=== PATIENT | male | born 1975 | race Asian ===

== ENCOUNTER 2019-05-02 00:58 | Emergency (ER) | payer BC ==
[~2019-05-02] VITALS: Ht 172.7 cm; Wt 72.6 kg
--- NOTE | 2019-05-02 01:51 | NUR ---
PATIENT IN BED 3. VSS. PATIENT BREATHING EVEN AND UNLABORED. PATIENT CAME TO ER FROM HOME D/T INCREASING ABD PAIN TO HIS BILAT UPPER ABD AND REPORT PAIN SOMETIMES RADIATES TO BACK. STATES IT GETS WORSE WHEN LAYING FLAT. BEEN HAVING PAIN FOR LAST 2 DAYS BUT STATES IT GOT WORSE TONIGHT AND HAS BEEN UNABLE TO SLEEP. RATES PAIN 8/10. AWAITING EVALUATION BY ER PROVIDER.
--- NOTE | 2019-05-02 01:55 | NUR ---
DR. IZAGUIRRE IN TO SEE THE PATIENT.
[2019-05-02] MEDS ORDERED: KETOROLAC TROMETHAMINE INJ 30 MG/ML VIAL IV ONE (02:00)
[2019-05-02 02:17] LABS: EOSINOPHILS % (AUTO) 2.7 % (0.0-6.0); HEMATOCRIT 44 % (39-51); HEMOGLOBIN 14.8 g/dL (13.5-17.5); LYMPHOCYTES # (AUTO) 0.7 /CMM (0.8-4.8); LYMPHOCYTES % (AUTO) 7.6 % (20.0-44.0); MEAN CORPUSCULAR HGB CONC 34 g/dl (31.0-36.0); MEAN CORPUSCULAR VOLUME 88 fL (80-96); MONOCYTES # (AUTO) 0.3 /CMM (0.1-1.30); MONOCYTES % (AUTO) 2.8 % (2.0-12.0); NEUTROPHILS # (AUTO) 7.8 /CMM (1.8-8.9); NEUTROPHILS % (AUTO) 86.9 % (43.0-81.0); PLATELET COUNT (AUTO) 250 /CMM (150-450); RED BLOOD CELL COUNT(AUTO) 4.96 MIL/uL (4.5-6.0)
[2019-05-02 02:22] LABS: CALCIUM, SERUM 9.3 mg/dL (8.5-10.1); CARBON DIOXIDE 25 mmol/L (21-32); CHLORIDE 104 mmol/L (98-107); CREATININE 0.9 mg/dL (0.6-1.3); GLUCOSE 139 mg/dL (74-106); POTASSIUM 3.9 mmol/L (3.5-5.1); SODIUM SERUM 140 mmol/L (136-145); UREA NITROGEN, BLOOD 16 mg/dL (7-18)
[2019-05-02 02:27] LABS: ALANINE AMINOTRANSFERASE 41 U/L (12-78); ALBUMIN 4.4 g/dL (3.4-5.0); ALKALINE PHOSPHATASE 67 U/L (46-116); ASPARTATE AMINOTRANSFERASE 17 U/L (15-37); BILIRUBIN,DIRECT 0.1 mg/dL (0.0-0.2); BILIRUBIN,TOTAL 0.4 mg/dL (0.2-1.0); LIPASE 168 U/L (73-393); TOTAL PROTEIN, SERUM 8.1 g/dL (6.4-8.2)
[2019-05-02] MEDS ORDERED: KETOROLAC TROMETHAMINE 15 MG/ML VIAL ONE (02:27)
[2019-05-02] MEDS ORDERED: IOHEXOL-300 100 ML VIAL IV ONE (02:40)
[2019-05-02] MEDS ORDERED: CT SWABBABLE VALVE TRANS SET 1 EA INFUS.SET MC ONE (02:41)
[2019-05-02] MEDS ORDERED: IV NS 0.9% 250 ML IV ONE (02:41)
--- NOTE | 2019-05-02 02:53 | NUR ---
RADIOLOGY TOOK PATIENT FOR CT SCAN.
--- NOTE | 2019-05-02 02:58 | NUR ---
PATIENT BROUGHT BACK FROM CT
[2019-05-02 03:00] VITALS: BP 117/74
--- NOTE | 2019-05-02 04:15 | NUR ---
Patient discharged to home in stable condition. Written and verbal after care instructions given TO Patient AND verbalizes understanding of instruction. REVIEWED NEED TO F/U WITH PCP SOON AND TEST RESULTS GIVEN VERBALIZED UNDERSTANDING. NEW PRESCRIPTION GIVEN. IV REMOVED FROM RIGHT AC CATHETER INTACT NO S/S OF COMPLICATIONS. PATIENT AMBULATED OFF UNIT WITH .
== END 2019-05-02 04:27 | disposition home or self-care (01) ==
LOC: ER 01:02
DX: K80.20 Calculus of gallbladder without cholecystitis without obstruction (principal)
CPT/HCPCS: 36415; 74177; 80048; 80076; 83690; 84484; 85025; 93005; 96374; 99284; J1885; J7050; Q9967